=== PATIENT | male | born 1970 | race Caucasian/White ===

== ENCOUNTER 2024-12-28 08:30 | Outpatient (CLI) | payer SELFPAY | END 2024-12-28 08:31 | disposition home or self-care (01) | LOC: AMB 12-29 09:02 | PROVIDERS: Visit Provider Emergency Medicine Emergency Medical Services | DX: M54.9 Dorsalgia, unspecified (principal); M54.2 Cervicalgia | CPT/HCPCS: A0425; A0427 ==